=== PATIENT | male | born 1955 | race Caucasian/White ===

== ENCOUNTER 2017-06-01 16:22 | Emergency (ER) | payer OTHER ==
--- NOTE | 2017-06-01 18:33 | C.PDOC ---
History Of Present Illness 61 y/o male presents to the ED with complaints of rectal pain and mild bleeding for the past several hours. Pt reports eating fish yesterday and thinks there is a bone stuck in his rectum. Pt sharp pain that worsens with movement. He denies vomiting, fever, abdominal pain or any other complaints. Time Seen by Provider: 06/01/17 17:41 Chief Complaint (Nursing): GI Problem History Per: Patient History/Exam Limitations: no limitations Onset/Duration Of Symptoms: Hrs Current Symptoms Are (Timing): Still Present Severity: Moderate Recent travel outside of the [place]: No Past Medical History Reviewed: Historical Data, Nursing Documentation, Vital Signs Vital Signs: Last Vital Signs Temp 98 F 06/01/17 19:31 Pulse 90 06/01/17 19:31 Resp 17 06/01/17 19:31 BP 135/80 06/01/17 19:31 Pulse Ox 96 06/01/17 19:36 - Medical History PMH: HTN Surgical History: Cholecystectomy Family History: States: Unknown Family Hx - Social History Hx Tobacco Use: No Hx Alcohol Use: No Hx Substance Use: No - Immunization History Hx Tetanus Toxoid Vaccination: No Hx Influenza Vaccination: No Hx Pneumococcal Vaccination: No Review Of Systems Except As Marked, All Systems Reviewed And Found Negative. Constitutional: Negative for: Fever, Chills Gastrointestinal: Positive for: Rectal Pain (and mild bleeding). Negative for: Vomiting, Abdominal Pain Physical Exam - Physical Exam Appears: Non-toxic, No Acute Distress Skin: Warm, Dry, No Rash Head: Atraumatic, Normacephalic Cardiovascular: Rhythm Regular Respiratory: Normal Breath Sounds, No Rales, No Rhonchi, No Wheezing Gastrointestinal/Abdominal: Normal Exam, Soft, No Tenderness Rectal: Other (small hard bone like foreign body at the anal sphincter, patient recalls eating two fish heads last night with bony plate like structures. ) Neurological/Psych: Oriented x3, Normal Speech, Normal Cognition ED Course And Treatment O2 Sat by Pulse Oximetry: 96 (room air) Pulse Ox Interpretation: Normal Progress Note: Pt placed on nitrous oxide, gently probed anus with Urojet, gently massaged inside anus with finger. Foreign body dislodged, floating freely in rectum. Pt then given fleet enema. 20 minutes later at bedside commode pt passed bony plate like structure - seems to be cheek-like bone of fish head. Medical Decision Making Medical Decision Making: small flat pointy 1x2cm flattened piece of fish cartilage, probably fish head/ cheek now passed, and pt feels better. Disposition Doctor Will See Patient In The: Office Counseled Patient/Family Regarding: Studies Performed, Diagnosis - Disposition Referrals: Storm Arredondo MD [Staff Provider] - Disposition: HOME/ ROUTINE Disposition Time: 19:36 Condition: GOOD Instructions: Foreign Body Ingestion (ED) Forms: School Excuse Print Language: PERSIAN - Clinical Impression Clinical Impression: Anal foreign body - Scribe Statement The provider has reviewed the documentation as recorded by the Vickey Conklin Provider Attestation: All medical record entries made by the Vickey were at my direction and personally dictated by me. I have reviewed the chart and agree that the record accurately reflects my personal performance of the history, physical exam, medical decision making, and the department course for this patient. I have also personally directed, reviewed, and agree with the discharge instructions and disposition.
[2017-06-01] MEDS ORDERED: Lidocaine 2% Jelly (Uro-Jet) ONE (18:46)
[2017-06-01 19:32] VITALS: BP 135/80; PULSE 90; RESP 17; TEMP 98; O2SAT 96
== END 2017-06-01 19:50 | disposition home or self-care (01) ==
LOC: C.ER 16:22
DX: T18.5XXA Foreign body in anus and rectum, initial encounter (principal); X58.XXXA Exposure to other specified factors, initial encounter; Y93.89 Activity, other specified; Y92.89 Other specified places as the place of occurrence of the external cause

== ENCOUNTER 2017-08-08 16:32 | Inpatient (IN) | payer MEDICAID ==
[2017-08-08 17:17] LABS: CHLORIDE 97 mmol/L (98-107); POTASSIUM 3.7 mmol/L (3.6-5.2); SODIUM 137 mmol/L (132-148)
[2017-08-08 17:19] LABS: ALB/GLOB RATIO 1.3 (1.0-2.1); ALKALINE PHOSPHATASE 176 U/L (38-126); ALT/SGPT 88 U/L (21-72); AST/SGOT 49 U/L (17-59); BILIRUBIN,TOTAL 1.3 mg/dL (0.2-1.3); BLOOD UREA NITROGEN 9 mg/dL (9-20); CARBON DIOXIDE 23 mmol/L (22-30); GFR AFRICAN-AMERICAN > 60; TOTAL PROTEIN 7.4 g/dL (6.3-8.3)
[2017-08-08 17:22] LABS: GLUCOSE,RANDOM 449 mg/dL (75-110)
[2017-08-08 17:29] LABS: INR 0.9
[2017-08-08 17:30] LABS: BASO % 0.6 % (0.0-2.0); EOS # 0.1 K/uL (0.0-0.7); EOS % 1.1 % (0.0-4.0); HEMATOCRIT 45.4 % (35.0-51.0); LYMPH # 2.6 K/uL (1.0-4.3); LYMPH % 33.7 % (20.0-40.0); MEAN CELL VOLUME 90.5 fL (80.0-94.0); MEAN CORPUSCULAR HGB CONC 35.4 g/dL (33.0-37.0); MEAN PLATELET VOLUME 13.2 fL (7.2-11.7); MONO # 0.5 K/uL (0.0-0.8); MONO % 6.3 % (0.0-10.0); NRBC % 0.1 % (0.0-2.0); RED CELL DISTRIBUTION WIDTH 12.8 % (11.5-14.5); WHITE BLOOD COUNT 7.8 K/uL (4.8-10.8)
--- NOTE | 2017-08-08 17:39 | RAD ---
PROCEDURE: CHEST RADIOGRAPH, 1 VIEW HISTORY: cp COMPARISON: Comparison chest dated 02/2605/04/2015. FINDINGS: LUNGS: Poor inspiration with low lung volumes, crowded bronchovascular markings and mild bibasilar atelectasis. . There is persistent slight elevation right hemidiaphragm possibly due to eventration. PLEURA: No pneumothorax or pleural fluid seen. CARDIOVASCULAR: Heart size is within range of normal. Aorta a ectatic and uncoiled. OSSEOUS STRUCTURES: No significant abnormalities. VISUALIZED UPPER ABDOMEN: Normal. OTHER FINDINGS: None. IMPRESSION: Poor inspiration with low lung volumes, crowded bronchovascular markings and mild bibasilar atelectasis. . There is persistent slight elevation right hemidiaphragm possibly due to eventration.
[2017-08-08] MEDS ORDERED: (Novolin R) Insulin Human Regular 100 units/ml vial IV ONE (17:40)
[2017-08-08] MEDS ORDERED: Sodium Chloride 0.9% 500 ML IV ONE ×2 (17:40→17:44)
[2017-08-08] MEDS ORDERED: (Novolin R) Insulin Human Regular 100 units/ml vial ONE (17:44)
--- NOTE | 2017-08-08 18:18 | C.PDOC ---
History Of Present Illness 61 yr old male with PMHx of HTN and prior [place] (according to patient), presents to the ER for left sided chest pain since this morning at approx 6am, associated with mild SOB. Patient states the pain is non radiating, and not associated with nausea/vomiting, fever/chills, cough, abdominal pain. Time Seen by Provider: 08/08/17 16:54 Chief Complaint (Nursing): Chest Pain History Per: Patient History/Exam Limitations: no limitations Onset/Duration Of Symptoms: Sudden Onset (Since morning) Severity: Mild Quality: "Pain" Past Medical History Reviewed: Historical Data, Nursing Documentation, Vital Signs Vital Signs: Last Vital Signs Temp 98.1 F 08/11/17 15:21 Pulse 76 08/11/17 15:21 Resp 20 08/11/17 15:21 BP 129/78 08/11/17 15:21 Pulse Ox 100 08/12/17 12:35 - Medical History PMH: HTN Surgical History: Cholecystectomy Family History: States: No Known Family Hx - Social History Hx Tobacco Use: No Hx Alcohol Use: No Hx Substance Use: No - Immunization History Hx Tetanus Toxoid Vaccination: No Hx Influenza Vaccination: No Hx Pneumococcal Vaccination: No Review Of Systems Except As Marked, All Systems Reviewed And Found Negative. Constitutional: Negative for: Fever, Chills Cardiovascular: Positive for: Chest Pain (Left sided ). Negative for: Palpitations Respiratory: Positive for: Shortness of Breath (Mild). Negative for: Cough Gastrointestinal: Negative for: Nausea, Vomiting, Abdominal Pain, Diarrhea Skin: Negative for: Rash Neurological: Negative for: Weakness, Numbness, Headache Physical Exam - Physical Exam Appears: Non-toxic, No Acute Distress, Other (Speaking in full sentences.) Skin: Warm, Dry, No Rash Head: Normacephalic Oral Mucosa: Moist Cardiovascular: Rhythm Regular Respiratory: Normal Breath Sounds, No Rales, No Rhonchi, No Wheezing Gastrointestinal/Abdominal: Normal Exam, Bowel Sounds, Soft, No Tenderness Extremity: Normal ROM, No Pedal Edema, No Calf Tenderness, No Swelling Pulses: Left Dorsalis Pedis: Normal, Right Dorsalis Pedis: Normal Neurological/Psych: Oriented x3 ED Course And Treatment - Laboratory Results Result Diagrams: 08/08/17 17:00 08/08/17 17:00 ECG: Interpreted By Me, Viewed By Me ECG Rhythm: Sinus Rhythm ECG Interpretation: Abnormal Interpretation Of ECG: Left axis deviation. Q waves in III and AVF. No acute ST/ T wave changes. Rate From EC (BPM) O2 Sat by Pulse Oximetry: 100 (RA) Pulse Ox Interpretation: Normal - Other Rad CXR X-Ray: Viewed By Me, Read By Radiologist Interpretation: PROCEDURE: CHEST RADIOGRAPH, 1 VIEW. HISTORY: cp. COMPARISON : Comparison chest dated 02/2605/04/2015. FINDINGS: LUNGS: Poor inspiration with low lung volumes, crowded bronchovascular markings and mild bibasilar atelectasis. . There is persistent slight elevation right hemidiaphragm possibly due to eventration. PLEURA: No pneumothorax or pleural fluid seen. CARDIOVASCULAR: Heart size is within range of normal. Aorta a ectatic and uncoiled. OSSEOUS STRUCTURES: No significant abnormalities. VISUALIZED UPPER ABDOMEN: Normal. OTHER FINDINGS: None. IMPRESSION: Poor inspiration with low lung volumes, crowded bronchovascular markings and mild bibasilar atelectasis. . There is persistent slight elevation right hemidiaphragm possibly due to eventration. Progress Note: PLAN: Blood work, CXR, EKG ordered and reviewed. Patient given PO ASA, IV insulin, and IV NS bolus. - Physician Consult Information Physician Contacted: Storm Arredondo Outcome Of Conversation: Discussed patient with Dr. Arredondo, he agrees with admission to his service for chest pain r/o ACS, new onset diabetes. Cardiac risk factors: HTN, DM. Disposition - Disposition Disposition: HOSPITALIZED Disposition Time: 19:23 Condition: STABLE - Clinical Impression Clinical Impression: Chest pain, New onset type 2 diabetes mellitus - Scribe Statement The provider has reviewed the documentation as recorded by the Vickey Lamar Provider Attestation: All medical record entries made by the Vickey were at my direction and personally dictated by me. I have reviewed the chart and agree that the record accurately reflects my personal performance of the history, physical exam, medical decision making, and the department course for this patient. I have also personally directed, reviewed, and agree with the discharge instructions and disposition. Decision To Admit - Pt Status Changed To: Hospital Disposition Of: Inpatient - Admit Certification Admit to Inpatient:: After my assessment, the patient will require hospitalization for at least two midnights. This is because of the severity of symptoms shown, intensity of services needed, and/or the medical risk in this patient being treated as an outpatient. - InPatient: Physician Admission Certification: I certify that this patient requires 2 or more midnights of care for the following reason:: see notes - . Bed Request Type: Telemetry Admitting Physician: Storm Arredondo Patient Diagnosis: Chest pain, New onset type 2 diabetes mellitus
--- NOTE | 2017-08-08 20:16 | CP.PCM.HP ---
History of Present Illness - History of Present Illness History of Present Illness: 1 yr old male with PMHx of HTN and prior [place] (according to patient), presents to the ER for left sided chest pain since this morning since 6am, associated with mild SOB. Patient states the pain is non radiating. Patient denies fever, chills , nausea, vomiting, abdominal pain, headache, weakness or numbness. Present on Admission - Present on Admission Any Indicators Present on Admission: No Review of Systems - EENT Eyes: As Per HPI Ears: As Per HPI - Cardiovascular Cardiovascular: Chest Pain at Rest, Chest Pain with Activity, Palpitations - Respiratory Respiratory: As Per HPI - Gastrointestinal Gastrointestinal: As Per HPI Past Patient History - Past Social History Smoking Status: Never Smoked - CARDIAC Hx Hypertension: Yes - PSYCHIATRIC Hx Substance Use: No - SURGICAL HISTORY Hx Cholecystectomy: Yes - ANESTHESIA Hx Anesthesia: Yes Hx Anesthesia Reactions: No Meds Allergies/Adverse Reactions: Allergies Allergy/AdvReac Type Severity Reaction Status Date / Time No Known Allergies Allergy Verified 08/08/17 16:44 Physical Exam - Head Exam Head Exam: ATRAUMATIC - Eye Exam Pupil Exam: PERRL - ENT Exam ENT Exam: Normal Exam - Neck Exam Neck exam: Positive for: Full Rom. Negative for: Lymphadenopathy - Respiratory Exam Respiratory Exam: NORMAL BREATHING PATTERN - Cardiovascular Exam Cardiovascular Exam: +S1, +S2, +S4 - GI/Abdominal Exam GI & Abdominal Exam: Soft. absent: Organomegaly, Tenderness - Extremities Exam Extremities exam: Positive for: full ROM. Negative for: calf tenderness - Back Exam Back exam: absent: CVA tenderness (L), CVA tenderness (R) Results - Vital Signs Recent Vital Signs: Last Vital Signs Temp 97.9 F 08/08/17 16:44 Pulse 78 08/08/17 17:48 Resp 20 08/08/17 17:48 BP 111/64 08/08/17 17:48 Pulse Ox 100 08/08/17 18:29 - Labs Result Diagrams: 08/08/17 17:00 08/08/17 17:00 Labs: Laboratory Results - last 24 hr 08/08/17 08/08/17 08/08/17 17:00 17:00 17:00 WBC 7.8 RBC 5.02 Hgb 16.1 Hct 45.4 MCV 90.5 MCH 32.0 H MCHC 35.4 RDW 12.8 Plt Count 127 L MPV 13.2 H Neut % (Auto) 58.3 Lymph % (Auto) 33.7 [place] % (Auto) 6.3 Eos % (Auto) 1.1 Baso % (Auto) 0.6 Neut # 4.5 Lymph # 2.6 [place] # 0.5 Eos # 0.1 Baso # 0.0 Differential Comment PT 10.3 INR 0.9 APTT 35 H Sodium 137 Potassium 3.7 Chloride 97 L Carbon Dioxide 23 Anion Gap 21 H BUN 9 Creatinine 0.7 L Est GFR ( Amer) > 60 Est GFR (Non-Af Amer) > 60 POC Glucose (mg/dL) Random Glucose 449 H* D Calcium 9.0 Total Bilirubin 1.3 AST 49 ALT 88 H D Alkaline Phosphatase 176 H Total Creatine Kinase CK-MB (Mass) Troponin I < 0.0120 NT-Pro-B Natriuret Pep Total Protein 7.4 Albumin 4.2 Globulin 3.3 Albumin/Globulin Ratio 1.3 Serum Ketones 08/08/17 08/08/17 08/08/17 17:22 17:36 18:46 WBC RBC Hgb Hct MCV MCH MCHC RDW Plt Count MPV Neut % (Auto) Lymph % (Auto) [place] % (Auto) Eos % (Auto) Baso % (Auto) Neut # Lymph # [place] # Eos # Baso # Differential Comment PT INR APTT Sodium Potassium Chloride Carbon Dioxide Anion Gap BUN Creatinine Est GFR ( Amer) Est GFR (Non-Af Amer) POC Glucose (mg/dL) 259 H Random Glucose Calcium Total Bilirubin AST ALT Alkaline Phosphatase Total Creatine Kinase 130 CK-MB (Mass) 1.74 Troponin I NT-Pro-B Natriuret Pep 22.0 Total Protein Albumin Globulin Albumin/Globulin Ratio Serum Ketones Negative Assessment & Plan (1) Diabetes 1.5, managed as type 2 Status: Acute (2) Coronary syndrome, acute Status: Acute
[2017-08-08] MEDS: (Novolin R) Insulin Human Regular 100 units/ml vial SC SCH (21:04)
[2017-08-08] MEDS ORDERED: Enoxaparin 30 mg Syringe ONE (21:11)
[2017-08-08] MEDS: Enoxaparin 30 mg Syringe SC SCH (21:12)
[2017-08-09 01:17] VITALS: RESP 20
[2017-08-09] MEDS: Enoxaparin 30 mg Syringe SC SCH ×2 (10:36→23:23)
[2017-08-09] MEDS: (Novolin R) Insulin Human Regular 100 units/ml vial SC SCH ×4 (10:37→21:11)
[2017-08-09] MEDS: Aspirin 325 mg EC Tablets PO SCH (10:37)
--- NOTE | 2017-08-09 14:53 | CP.PCM.PN ---
Subjective - Date & Time of Evaluation Date of Evaluation: 08/09/17 Time of Evaluation: 14:53 - Subjective Subjective: NO CP SUGARS IN 200'S TNI NEG CARDIAC W/U ADD METFORMIN Objective - Vital Signs/Intake and Output Vital Signs (last 24 hours): Temp Pulse Resp BP Pulse Ox 97.9 F 74 20 127/79 95 08/09/17 07:26 08/09/17 07:26 08/09/17 07:26 08/09/17 07:26 08/09/17 07:26 - Medications Medications: Current Medications Amlodipine Besylate (Norvasc) 10 mg PO DAILY [facility] Last Admin: 08/09/17 10:36 Dose: 10 mg Aspirin (Ecotrin) 325 mg PO DAILY [facility] Last Admin: 08/09/17 10:37 Dose: 325 mg Enoxaparin Sodium (Lovenox) 30 mg SC Q12 [facility] Last Admin: 08/09/17 10:36 Dose: 30 mg Insulin Human Regular (Novolin R) 0 unit SC ACHS [facility] PRN Reason: Protocol Last Admin: 08/09/17 14:15 Dose: 3 unit Metformin HCl (Glucophage) 500 mg PO BID [facility] - Labs Labs: 08/08/17 17:00 08/08/17 17:00 PT 10.3 SECONDS (9.7-12.2) 08/08/17 17:00 INR 0.9 08/08/17 17:00 APTT 35 SECONDS (21-34) H 08/08/17 17:00 Assessment and Plan (1) Diabetes 1.5, managed as type 2 Status: Acute (2) Coronary syndrome, acute Status: Acute
[2017-08-10] MEDS: Aspirin 325 mg EC Tablets PO SCH (10:32)
[2017-08-10] MEDS: Enoxaparin 30 mg Syringe SC SCH ×2 (10:32→21:41)
[2017-08-10] MEDS: (Novolin R) Insulin Human Regular 100 units/ml vial SC SCH ×4 (10:32→22:15)
--- NOTE | 2017-08-10 13:04 | CP.PCM.PN ---
Subjective - Date & Time of Evaluation Date of Evaluation: 08/10/17 Time of Evaluation: 13:01 - Subjective Subjective: NO FURTHER CP VS STABLE TNI NEG SUGARS IN 200'S CHECK ECHO Objective - Vital Signs/Intake and Output Vital Signs (last 24 hours): Temp Pulse Resp BP Pulse Ox 97.9 F 68 20 128/78 94 L 08/10/17 08:00 08/10/17 12:00 08/10/17 08:00 08/10/17 08:00 08/10/17 08:00 - Medications Medications: Current Medications Acetaminophen (Tylenol 325mg Tab) 650 mg PO Q6 PRN PRN Reason: Pain, Mild (1-3) Amlodipine Besylate (Norvasc) 10 mg PO DAILY [facility] Last Admin: 08/10/17 10:32 Dose: 10 mg Aspirin (Ecotrin) 325 mg PO DAILY [facility] Last Admin: 08/10/17 10:32 Dose: 325 mg Enoxaparin Sodium (Lovenox) 30 mg SC Q12 [facility] Last Admin: 08/10/17 10:32 Dose: 30 mg Insulin Human Regular (Novolin R) 0 unit SC ACHS [facility] PRN Reason: Protocol Last Admin: 08/10/17 10:32 Dose: 3 unit Metformin HCl (Glucophage) 500 mg PO BID [facility] Last Admin: 08/10/17 10:32 Dose: 500 mg - Labs Labs: 08/08/17 17:00 08/08/17 17:00 PT 10.3 SECONDS (9.7-12.2) 08/08/17 17:00 INR 0.9 08/08/17 17:00 APTT 35 SECONDS (21-34) H 08/08/17 17:00 Assessment and Plan (1) Diabetes 1.5, managed as type 2 Status: Acute (2) Coronary syndrome, acute Status: Acute
[2017-08-11] MEDS: (Novolin R) Insulin Human Regular 100 units/ml vial SC SCH ×3 (08:11→19:22)
[2017-08-11] MEDS: Aspirin 325 mg EC Tablets PO SCH (09:31)
[2017-08-11] MEDS: Enoxaparin 30 mg Syringe SC SCH (09:32)
--- NOTE | 2017-08-11 13:47 | CP.PCM.DIS ---
Provider - Provider Date of Admission: 08/08/17 19:23 Attending physician: Storm Arredondo MD Time Spent in preparation of Discharge (in minutes): 30 Diagnosis - Discharge Diagnosis (1) Diabetes 1.5, managed as type 2 Status: Acute (2) Coronary syndrome, acute Status: Acute Hospital Course - Lab Results Lab Results: Most Recent Lab Values WBC 7.8 K/uL (4.8-10.8) 08/08/17 17:00 RBC 5.02 Mil/uL (4.40-5.90) 08/08/17 17:00 Hgb 16.1 g/dL (12.0-18.0) 08/08/17 17:00 Hct 45.4 % (35.0-51.0) 08/08/17 17:00 MCV 90.5 fL (80.0-94.0) 08/08/17 17:00 MCH 32.0 pg (27.0-31.0) H 08/08/17 17:00 MCHC 35.4 g/dL (33.0-37.0) 08/08/17 17:00 RDW 12.8 % (11.5-14.5) 08/08/17 17:00 Plt Count 127 K/uL (130-400) L 08/08/17 17:00 MPV 13.2 fL (7.2-11.7) H 08/08/17 17:00 Neut % (Auto) 58.3 % (50.0-75.0) 08/08/17 17:00 Lymph % (Auto) 33.7 % (20.0-40.0) 08/08/17 17:00 Iron % (Auto) 6.3 % (0.0-10.0) 08/08/17 17:00 Eos % (Auto) 1.1 % (0.0-4.0) 08/08/17 17:00 Baso % (Auto) 0.6 % (0.0-2.0) 08/08/17 17:00 Neut # 4.5 K/uL (1.8-7.0) 08/08/17 17:00 Lymph # 2.6 K/uL (1.0-4.3) 08/08/17 17:00 Iron # 0.5 K/uL (0.0-0.8) 08/08/17 17:00 Eos # 0.1 K/uL (0.0-0.7) 08/08/17 17:00 Baso # 0.0 K/uL (0.0-0.2) 08/08/17 17:00 Differential Comment 08/08/17 17:00 PT 10.3 SECONDS (9.7-12.2) 08/08/17 17:00 INR 0.9 08/08/17 17:00 APTT 35 SECONDS (21-34) H 08/08/17 17:00 Sodium 137 mmol/L (132-148) 08/08/17 17:00 Potassium 3.7 mmol/L (3.6-5.2) 08/08/17 17:00 Chloride 97 mmol/L (98-107) L 08/08/17 17:00 Carbon Dioxide 23 mmol/L (22-30) 08/08/17 17:00 Anion Gap 21 (10-20) H 08/08/17 17:00 BUN 9 mg/dL (9-20) 08/08/17 17:00 Creatinine 0.7 MG/DL (0.8-1.5) L 08/08/17 17:00 Est GFR ( Amer) > 60 08/08/17 17:00 Est GFR (Non-Af Amer) > 60 08/08/17 17:00 POC Glucose (mg/dL) 288 mg/dL (65-110) H 08/11/17 11:20 Random Glucose 449 mg/dL (75-110) H* D 08/08/17 17:00 Calcium 9.0 mg/dl (8.6-10.4) 08/08/17 17:00 Total Bilirubin 1.3 mg/dL (0.2-1.3) 08/08/17 17:00 AST 49 U/L (17-59) 08/08/17 17:00 ALT 88 U/L (21-72) H D 08/08/17 17:00 Alkaline Phosphatase 176 U/L (38-126) H 08/08/17 17:00 Total Creatine Kinase 93 U/L (55-170) 08/09/17 08:19 CK-MB (Mass) 1.23 ng/mL (0.0-3.38) 08/09/17 08:19 Troponin I < 0.0120 ng/mL (0.00-0.120) 08/08/17 17:00 Troponin I, Quant < 0.0120 ng/mL (0.00-0.120) 08/09/17 08:19 NT-Pro-B Natriuret Pep 22.0 pg/mL (0-900) 08/08/17 17:22 Total Protein 7.4 g/dL (6.3-8.3) 08/08/17 17:00 Albumin 4.2 g/dL (3.5-5.0) 08/08/17 17:00 Globulin 3.3 gm/dL (2.2-3.9) 08/08/17 17:00 Albumin/Globulin Ratio 1.3 (1.0-2.1) 08/08/17 17:00 Serum Ketones Negative (NEGATIVE) 08/08/17 17:36 - Hospital Course Hospital Course: male with PMHx of HTN and prior [place] (according to patient), presents to the ER for left sided chest pain since this morning since 6am, associated with mild SOB. Patient states the pain is non radiating. Patient denies fever, chills, nausea, vomiting, abdominal pain, headache, weakness or numbness. TNI ARE NEG ECHO PENDING D/C HOME ON ASA _ METFORMIN OUT PT STRESS TEST Discharge Exam - Head Exam Head Exam: ATRAUMATIC Discharge Plan - Follow Up Plan Condition: GOOD Disposition: HOME/ ROUTINE
[2017-08-11 15:23] VITALS: BP 129/78; PULSE 76; TEMP 98.1
--- NOTE | 2017-08-11 18:00 | CARD ---
APPROVED REPORT EKG Measurement Heart [id number] <Conclusion> Normal sinus rhythm Left axis deviation Inferior infarct, age undetermined Abnormal ECG
--- NOTE | 2017-08-11 18:00 | CARD ---
APPROVED REPORT EXAM: Two-dimensional and M-mode echocardiogram with Doppler and color Doppler. Other Information Quality : GoodRhythm : NSR INDICATION Cardiac Disease: CAD Chest Pain RISK FACTORS Diabetes 2D DIMENSIONS IVSd1.0 (0.7-1.1cm)LVDd4.4 (3.9-5.9cm) PWd1.1 (0.7-1.1cm)LVDs2.9 (2.5-4.0cm) FS (%) 34.0 %LVEF (%)63.2 (>50%) M-Mode DIMENSIONS Left Atrium (MM)3.75 (2.5-4.0cm)Aortic Root3.32 (2.2-3.7cm) Aortic Cusp Exc.2.25 (1.5-2.0cm) Mitral Valve MV E Zvxbqscb31.0cm/sMV A Qtrwrgdx73.3cm/sE/A ratio0.9 TDI E/Lateral E'0.0E/Medial E'0.0 Tricuspid Valve TR Peak [id number]/sTR Peak [id number] LEFT VENTRICLE The left ventricle is normal size. There is normal left ventricular wall thickness. The left ventricular function is normal. The left ventricular ejection fraction is within the normal range. There is normal LV segmental wall motion. The left ventricular diastolic function is normal. No left ventricle thrombus noted on this study. There is no ventricular septal defect visualized. There is no left ventricular aneurysm. There is no mass noted in the left ventricle. RIGHT VENTRICLE The right ventricle is normal size. There is normal right ventricular wall thickness. The right ventricular systolic function is normal. ATRIA The left atrium size is normal. The right atrium size is normal. The interatrial septum is intact with no evidence for an atrial septal defect. AORTIC VALVE The aortic valve is normal in structure. No aortic regurgitation is present. There is no aortic valvular stenosis. There is no aortic valvular vegetation. MITRAL VALVE The mitral valve is normal in structure. There is no evidence of mitral valve prolapse. There is no mitral valve stenosis. There is no mitral valve regurgitation noted. TRICUSPID VALVE The tricuspid valve is normal in structure. There is no tricuspid valve regurgitation noted. There is no tricuspid valve prolapse or vegetation. There is no tricuspid valve stenosis. PULMONIC VALVE The pulmonary valve is normal in structure. There is no pulmonic valvular regurgitation. GREAT VESSELS The aortic root is normal in size. The ascending aorta is normal in size. The pulmonary artery is normal. The IVC is normal in size and collapses >50% with inspiration. PERICARDIAL EFFUSION There is no pericardial effusion. <Conclusion> normal study.
[2017-08-12 12:29] VITALS: O2SAT 100
--- NOTE | 2017-08-13 15:43 | CARD ---
APPROVED REPORT EKG Measurement Heart [id number] <Conclusion> Normal sinus rhythm Left axis deviation Inferior infarct, age undetermined Abnormal ECG
== END 2017-08-11 19:25 | disposition home or self-care (01) | DRG 140 ==
LOC: C.ER 16:32 → C.9E 19:23 → C.5S 19:23
PROVIDERS: ADMIT Internal Medicine Cardiovascular Disease; ATTEND Internal Medicine Cardiovascular Disease
DX: I24.9 Acute ischemic heart disease, unspecified (principal); E11.9 Type 2 diabetes mellitus without complications; I25.2 Old myocardial infarction; Z90.49 Acquired absence of other specified parts of digestive tract; Z79.4 Long term (current) use of insulin

== ENCOUNTER 2017-12-16 10:18 | Emergency (ER) | payer MEDICAID ==
--- NOTE | 2017-12-16 12:11 | C.PDOC ---
History Of Present Illness 61-year-old male, presents to the emergency department with complaints of two- day duration of nasal congestion, runny nose, non-productive cough, generalized weakness, body aches and a low grade fever. Patient denies nausea/vomiting, back pain, dizziness, symptoms, change in bowel habits or any other associated symptoms. No other complaints at this time. Time Seen by Provider: 12/16/17 11:45 Chief Complaint (Nursing): Flu-like Symptoms History Per: Patient History/Exam Limitations: no limitations Onset/Duration Of Symptoms: Days (2) Current Symptoms Are (Timing): Still Present Associated Symptoms: Fever, Cough Past Medical History Reviewed: Historical Data, Nursing Documentation, Vital Signs Vital Signs: Last Vital Signs Temp 98.6 F 12/16/17 10:46 Pulse 100 H 12/16/17 10:46 Resp 18 12/16/17 10:46 BP 160/83 H 12/16/17 10:46 Pulse Ox 99 12/16/17 12:12 - Medical History PMH: Arthritis, HTN Surgical History: Cholecystectomy Family History: States: No Known Family Hx - Social History Hx Tobacco Use: No Hx Alcohol Use: No Hx Substance Use: No - Immunization History Hx Tetanus Toxoid Vaccination: No Hx Influenza Vaccination: No Hx Pneumococcal Vaccination: No Review Of Systems Constitutional: Positive for: Fever, Malaise ENT: Positive for: Nose Discharge, Nose Congestion. Negative for: Ear Pain Respiratory: Positive for: Cough. Negative for: Shortness of Breath, Sputum Musculoskeletal: Negative for: Back Pain Neurological: Negative for: Headache, Dizziness Physical Exam - Physical Exam Appears: Well, Non-toxic, No Acute Distress Skin: Normal Color, Warm, Dry, No Rash Head: Normacephalic Eye(s): bilateral: PERRL Ear(s): Bilateral: Normal Nose: No Flaring, No Discharge (scant clear B/L) Oral Mucosa: Moist Throat: No Erythema, No Drooling Neck: Trachea Midline, Supple, Other ((-)meningeal sign) Cardiovascular: Rhythm Regular Respiratory: No Decreased Breath Sounds, No Accessory Muscle Use, No Stridor, No Wheezing Gastrointestinal/Abdominal: Soft, No Tenderness, No Distention, No Guarding Extremity: Normal ROM, No Deformity, No Swelling Neurological/Psych: Oriented x3, Normal Speech ED Course And Treatment O2 Sat by Pulse Oximetry: 99 (RA) Pulse Ox Interpretation: Normal Progress Note: On re-eval, pt is afebrile, hemodynamicaly stable. NOn-toxic. Tolerate PO well in ED. PulsEOx 99% RA. ENT: no acute findings. neck: Supple , (-) meningeal sign. Lungs: CTA B/L, BS equal B/L. Abd: benign. Neuorlogicaly intact. Pt has clinical findings c/w bronchitis. Pt advised on course of ds. ref. to f/u with PMD in 2-3 days for re-eval,. return to ED if any worsening or new changes. Disposition Counseled Patient/Family Regarding: Diagnosis, Need For Followup, Rx Given - Disposition Referrals: Shahbaz Arredondo MD [IM] - Disposition: HOME/ ROUTINE Disposition Time: 12:26 Condition: STABLE Additional Instructions: ENCOURAGE FLUIDS TAKE MEDICATION PRESCRIBED FOLLOW UP WITH PMD IN 2-3 DAYS FOR RE-EVALUATION. RETURN TO ED IF ANY WORSENING OR NEW CHANGES. Prescriptions: Azithromycin [Zithromax] 250 mg PO DAILY #4 tab Promethazine/Codeine [Phenergan/Codeine Oral Syrup] 10 ml PO BID #90 ml Instructions: Acute Bronchitis (ED) Forms: [employer] (Turkish) - Clinical Impression Clinical Impression: Bronchitis - Scribe Statement The provider has reviewed the documentation as recorded by the Scribe (Fredi Zuniga) All medical record entries made by the Scribe were at my direction and personally dictated by me. I have reviewed the chart and agree that the record accurately reflects my personal performance of the history, physical exam, medical decision making, and the department course for this patient. I have also personally directed, reviewed, and agree with the discharge instructions and disposition.
[2017-12-16 12:33] VITALS: BP 123/80; PULSE 89; RESP 16; TEMP 98.8; O2SAT 96
== END 2017-12-16 12:41 | disposition home or self-care (01) ==
LOC: C.ER 10:18
DX: J40 Bronchitis, not specified as acute or chronic (principal)